=== PATIENT | male | born 1945 | race Caucasian/White ===

== ENCOUNTER 2019-04-16 16:08 | Emergency (ER) | payer OTHER, BC ==
[~2019-04-16] VITALS: Ht 185.4 cm; Wt 99.8 kg
[~2019-04-16 16:08] MED LIST: ADULT LOW DOSE81 MG PO; CENTRUM SILVER1 EAC4 PO; COZAAR 50 MG TA50 MG PO; GEMFIBROZIL 60600 MG PO; GLUMETZA500 PO; MINIPRIN81 MG PO; PERCOCET 5-3251 EACH PO; PROSCAR 5MG TABL5 M1 PO; ZOCOR 20 MG TAB20 M1 PO
[2019-04-16] MEDS ORDERED: NORCO 10-325 T1 EACH PO (20:04)
[2019-04-16] MEDS ORDERED: CYCLOBENZAPRINE5 MG PO (20:04)
[2019-04-16 21:53] VITALS: BP 155/91
== END 2019-04-16 20:15 | disposition home or self-care (01) ==
LOC: ER 16:08
DX: M51.26 Other intervertebral disc displacement, lumbar region (principal); M79.605 Pain in left leg; E11.9 Type 2 diabetes mellitus without complications; I10 Essential (primary) hypertension; Z79.82 Long term (current) use of aspirin; Z79.899 Other long term (current) drug therapy; Z98.890 Other specified postprocedural states; X50.0XXA Overexertion from strenuous movement or load, initial encounter; Y93.89 Activity, other specified; Y92.89 Other specified places as the place of occurrence of the external cause; Y99.9 Unspecified external cause status